=== PATIENT | male | born 1940 | race Two or more races ===

== ENCOUNTER 2017-01-31 23:57 | Inpatient (IN) | payer MEDICARE, MEDICAID ==
[~2017-01-31] VITALS: Ht 165.1 cm; Wt 53.7 kg
[2017-02-01 00:54] LABS: BASOPHILS % (AUTO) 0.6 % (0.0-2.0); EOSINOPHILS # (AUTO) 0.3 /CMM (0.0-0.7); HEMATOCRIT 39 % (39-51); HEMOGLOBIN 13.1 g/dL (13.5-17.5); LYMPHOCYTES # (AUTO) 3.3 /CMM (0.8-4.8); LYMPHOCYTES % (AUTO) 48.9 % (20.0-44.0); MEAN CORPUSCULAR HEMOGLOBIN 29 PG (26.0-33.0); MEAN CORPUSCULAR HGB CONC 34 g/dl (31.0-36.0); MEAN CORPUSCULAR VOLUME 85 fL (80-96); MONOCYTES # (AUTO) 0.6 /CMM (0.1-1.30); MONOCYTES % (AUTO) 8.6 % (2.0-12.0); NEUTROPHILS # (AUTO) 2.5 /CMM (1.8-8.9); NEUTROPHILS % (AUTO) 36.9 % (43.0-81.0); PLATELET COUNT (AUTO) 195 /CMM (150-450); RDW COEFFICIENT OF VARIATION 14.3 (11.5-15.0); RED BLOOD CELL COUNT(AUTO) 4.55 MIL/uL (4.5-6.0); WHITE BLOOD COUNT (AUTO) 6.8 K/uL (4.3-11.0)
[2017-02-01 01:09] LABS: CALCIUM, SERUM 9.6 mg/dL (8.5-10.1); CARBON DIOXIDE 29 mmol/L (21-32); CHLORIDE 105 mmol/L (98-107); CREATININE 0.8 mg/dL (0.6-1.3); GLUCOSE 92 mg/dL (74-106); POTASSIUM 4.3 mmol/L (3.5-5.1); SODIUM SERUM 142 mmol/L (136-145); UREA NITROGEN, BLOOD 18 mg/dL (7-18)
[2017-02-01 01:15] LABS: ALANINE AMINOTRANSFERASE 20 U/L (12-78); ALBUMIN 3.6 g/dL (3.4-5.0); ALKALINE PHOSPHATASE 82 U/L (46-116); ASPARTATE AMINOTRANSFERASE 16 U/L (15-37); BILIRUBIN,TOTAL 0.6 mg/dL (0.2-1.0); TOTAL PROTEIN, SERUM 7.1 g/dL (6.4-8.2)
--- NOTE | 2017-02-01 02:14 | NUR ---
PATIENT GOES TO 314-1.
--- NOTE | 2017-02-01 02:20 | NUR ---
PT TO BE ADMITTED TO MED SURG 314 #1, REPORT CALLED TO RECEIVING RN. PT SLEEPING IN GURNEY AT THIS TIME IN NAD, EASILY AWOKEN, A/OX3, PT IN STABLE CONDITION
--- NOTE | 2017-02-01 02:42 | NUR ---
report given to ms sage
--- NOTE | 2017-02-01 03:35 | NUR ---
RN OPEN NOTES RECEIVED PATIENT FROM ER VIA [place]. A/O X2-3. NO SIGNS OF DISTRESS OR DISCOMFORT. BREATHING EVEN AND UNLABORED. IV ACCESS IN R HAND, PATENT AND INTACT, NO SIGNS OF REDNESS OR INFILTRATION. ORIENTED PATIENT TO UNIT AND ROOM. ALL PHOTOS TAKEN. BED IN LOW LOCKED POSITION WITH SIDE RAILS X3. CALL LIGHT WITHIN REACH. WILL CONTINUE TO MONITOR.
[2017-02-01 04:00] VITALS: BP 164/68
[2017-02-01] MEDS ORDERED: ENOXAPARIN SODIUM 40 MG/0.4 ML DISP.SYRIN SQ SCH (04:30)
[2017-02-01] MEDS ORDERED: Z GUARD REMEDY 2 OZ OINT TP PRN (04:30)
[2017-02-01] MEDS ORDERED: ONDANSETRON HCL/PF 4 MG/2 ML VIAL IVP PRN (04:30)
[2017-02-01] MEDS ORDERED: ACETAMINOPHEN 325 MG TABLET PO PRN (04:30)
[2017-02-01] MEDS ORDERED: ENOXAPARIN SODIUM 40 MG/0.4 ML DISP.SYRIN SQ ONE (05:30)
[2017-02-01] MEDS: IV NS 0.9% 1,000 ML IV PRN ×2 (06:02→21:57)
--- NOTE | 2017-02-01 07:30 | NUR ---
RN OPENING NOTES RECEIVED PT. IN BED A&OX2, PT. FORGETFUL. PT. IS BLIND. BREATHING UNLABORED AND EVENLY ON ROOM AIR. NO S/S OF ACUTE DISTRESS. IV FLUIDS RUNNING AT 75 ML/HR. URINAL AT BEDSIDE. BED IS IN LOWEST POSITION, 2 SIDE RAILS UP, AND INSTRUCTED PT. TO USE CALL LIGHT FOR ASSISTANCE. WILL CONTINUE TO ASSESS AND MONITOR.
[2017-02-01 08:00] VITALS: BP 154/76
[2017-02-01] MEDS ORDERED: DOCU-25 PO (08:10)
[2017-02-01] MEDS ORDERED: MAGN400O6 PO (08:10)
[2017-02-01] MEDS ORDERED: ACET-868 PO (08:10)
[2017-02-01] MEDS ORDERED: LOSA100T15 PO (08:10)
[2017-02-01] MEDS ORDERED: MAG-55 PO (08:10)
[2017-02-01] MEDS ORDERED: CALC-838 PO (08:10)
[2017-02-01] MEDS ORDERED: DEXT15DR6 EACHEYE (08:10)
--- NOTE | 2017-02-01 08:21 | NUR ---
RN CLOSING NOTES PATIENT AWAKE IN BED. A/O X2-3. NO SIGNS OF DISTRESS OR DISCOMFORT. BREATHING EVEN AND UNLABORED. IV ACCESS IN R HAND WITH NS INFUSING, PATENT AND INTACT, NO SIGNS OF REDNESS OR INFILTRATION. ALL NEEDS MET. NO SIGNIFICANT CHANGES THROUGH THE NIGHT. BED IN LOW LOCKED POSITION WITH SIDE RAILS X3. CALL LIGHT WITHIN REACH. ENDORSED TO AM SHIFT FOR [facility].
[2017-02-01] MEDS: ASPIRIN EC 81 MG TABLET.DR PO SCH (09:44)
[2017-02-01] MEDS ORDERED: MAG HYDROX/AL HYDROX/SIMETH 30 ML UDC PO PRN (12:30)
[2017-02-01] MEDS ORDERED: MAGNESIUM HYDROXIDE 30 ML UDC PO PRN (12:30)
[2017-02-01] MEDS ORDERED: POLYVINYL ALCOHOL 15 ML BOTTLE OP PRN (12:30)
[2017-02-01] MEDS: CALCIUM CARB 600MG /VIT D 1 EACH TABLET PO SCH (12:53)
[2017-02-01] MEDS: LOSARTAN POTASSIUM 50 MG TABLET PO SCH (13:01)
--- NOTE | 2017-02-01 13:20 | NUR ---
RN NOTES PT. REFUSED TO TAKE SECOND 50 MG TAB OF [place]AN.
[2017-02-01 16:00] VITALS: BP 187/98
[2017-02-01] MEDS ORDERED: CLONIDINE HCL 0.1 MG TABLET PO PRN (17:00)
[2017-02-01] MEDS ORDERED: hydrALAZINE HCL IV 20 MG VIAL IV PRN (17:00)
--- NOTE | 2017-02-01 17:15 | NUR ---
RN NOTES AT 1645 PT. RECEIVED HYDRALAZINE IVP DUE TO HIGH BP >160 SBP. PT.'S BP DECREASED TO 110/50.
[2017-02-01] MEDS: DOCUSATE SODIUM 100 MG CAPSULE PO SCH (18:57)
--- NOTE | 2017-02-01 19:30 | NUR ---
RN CLOSING NOTES PT. IN BED A&OX2, FORGETFUL. BREATHING UNLABORED AND EVENLY ON ROOM AIR. NO S/S OF ACUTE DISTRESS. IV FLUIDS RUNNING AT 75 ML/HR. BED IS IN LOWEST POSITION, 2 SIDE RAILS UP, AND INSTRUCTED PT. TO USE CALL LIGHT FOR ASSISTANCE. WILL ENDORSE TO NURSE.
--- NOTE | 2017-02-01 19:44 | NUR ---
MS/RN RECEIVE PATIENT AWAKE, ALERT, ORIENTED, COMFORTABLE, NO C/O PAIN, NO DISTRESS NOTED, CALL LIGHT IN REACH. WILL MONITOR.
[2017-02-01 20:21] VITALS: BP 158/72
--- NOTE | 2017-02-01 20:47 | NUR ---
MS/RN ASSUMED CARE OF THIS PATIENT FOR CONTINUITY OF CARE. PATIENT IS SLEEPING AT THIS TIME, APPEAR COMFORTABLE, NO DISTRESS NOTED, CALL LIGHT IN REACH. WILL MONITOR.
--- NOTE | 2017-02-02 06:31 | NUR ---
MS/RN PATIENT IS AWAKE, ALERT, ORIENTED AT THIS TIME, COMFORTABLE, NO CHANGE IN CONDITION. HAD AN ON AND OFF SLEEP THE WHOLE NIGHT. ALL NEEDS ATTENDED AT THIS TIME. WILL CONTINUE TO MONITOR.
[2017-02-02 08:00] VITALS: BP 156/68
--- NOTE | 2017-02-02 08:00 | NUR ---
MS EDUARDO AM NOTES RECEIVED PT. IN BED A&OX2, PT. FORGETFUL. PT. IS BLIND. BREATHING UNLABORED AND EVENLY ON ROOM AIR. NO S/S OF ACUTE DISTRESS. IV FLUIDS RUNNING AT 75 ML/HR. PT REFUSED BLOOD DRAW FOR AM LABS INSPITE OF EXPLAINING ITS RISKS AND BENEFITS.PT ATE 80%BREAKFAST AND IS ASSISTED WITH FEEDING.PT WORKED WITH P.T. AND NEEDS MIN TO MODERATE ASSIST WITH TRANSFERS DUE TO BEING BLIND.BED IS IN LOWEST POSITION, 2 SIDE RAILS UP, AND INSTRUCTED PT. TO USE CALL LIGHT FOR ASSISTANCE. WILL CONTINUE TO ASSESS AND MONITOR.
[2017-02-02] MEDS: ASPIRIN EC 81 MG TABLET.DR PO SCH (08:36)
[2017-02-02] MEDS: DOCUSATE SODIUM 100 MG CAPSULE PO SCH ×2 (08:36→17:15)
[2017-02-02] MEDS: LOSARTAN POTASSIUM 50 MG TABLET PO SCH (08:36)
[2017-02-02] MEDS: CALCIUM CARB 600MG /VIT D 1 EACH TABLET PO SCH (08:36)
[2017-02-02] MEDS: ENOXAPARIN SODIUM 40 MG/0.4 ML DISP.SYRIN SQ SCH (08:38)
--- NOTE | 2017-02-02 13:58 | NUR ---
DIETARY RECOMMENDATIONS RELAYED TO DR GARRETT DUE TO PT'S MALNUTRITION STATUS WITH ORDERS MADE AND CARRIED OUT.
[2017-02-02 16:00] VITALS: BP 133/77
[2017-02-02] MEDS ORDERED: BOOST PLUS FOOD-CHOCLATE 237 ML BOX PO SCH (17:00)
[2017-02-02] MEDS: BOOST FOOD- BERRY 237 ML BOX PO SCH ×2 (17:00→18:04)
[2017-02-02] MEDS: IV NS 0.9% 1,000 ML IV PRN (17:17)
--- NOTE | 2017-02-02 18:00 | NUR ---
PT SEEN BY P.T. AND WAS ABLE TO AMBULATE WITH MIN TO MOD ASSIST.PT TOLERATED WELL.
--- NOTE | 2017-02-02 19:45 | NUR ---
MS/RN NOTES RECEIVED PT. LYING IN BED RESTING. PT. IS EASILY AROUSABLE TO NAME. PT. IS AWAKE, ALERT AND ORIENTED X2. BREATHING EVEN AND UNLABORED ON ROOM AIR. NO SOB, RESPIRATORY DISTRESS OR COMPLAINTS OF PAIN NOTED AT THIS TIME. PT. WITH RIGHT HAND 20 GAUGE PERIPHERAL IV PRESENT, PATENT AND INTACT ADMINISTERING TO PT. NS @ 75 ML/HR. BED LOCKED AND IN LOWEST POSITION, SIDE RAILS UP X3, BED ALARM ON, CALL LIGHT WITHIN REACH, WILL CONTINUE TO MONITOR.
[2017-02-02 22:00] VITALS: BP 143/54
[2017-02-03] MEDS: IV NS 0.9% 1,000 ML IV PRN ×2 (05:29→22:02)
--- NOTE | 2017-02-03 06:28 | NUR ---
MS/RN NOTES PT. IS LYING IN BED RESTING. BREATHING EVEN AND UNLABORED ON ROOM AIR. NO SOB, RESPIRATORY DISTRESS OR COMPLAINTS OF PAIN NOTED AT THIS TIME. PT. WITH RIGHT HAND 20 GAUGE PERIPHERAL IV PRESENT, PATENT AND INTACT ADMINISTERING TO PT. NS @ 75 ML/HR. ALL PT. NEEDS MET. BED LOCKED AND IN LOWEST POSITION, SIDE RAILS UP X3, BED ALARM ON, CALL LIGHT WITHIN REACH, WILL ENDORSE TO DAYSHIFT NURSE FOR CONTINUITY OF CARE.
[2017-02-03 08:00] VITALS: BP 178/71
--- NOTE | 2017-02-03 08:00 | NUR ---
MS CLARK AM NOTES RECEIVED PT. IN BED A&OX2, PT. FORGETFUL. PT. IS BLIND. BREATHING UNLABORED AND EVENLY ON ROOM AIR. NO S/S OF ACUTE DISTRESS. IV FLUIDS RUNNING AT 75 ML/HR. PT ATE BREAKFAST AND IS ASSISTED WITH FEEDING.PT WORKED WITH P.T. AND NEEDS MIN TO MODERATE ASSIST WITH TRANSFERS DUE TO BEING BLIND.BED IS IN LOWEST POSITION, 2 SIDE RAILS UP, AND INSTRUCTED PT. TO USE CALL LIGHT FOR ASSISTANCE. WILL CONTINUE TO ASSESS AND MONITOR.
[2017-02-03] MEDS: DOCUSATE SODIUM 100 MG CAPSULE PO SCH ×2 (09:42→17:26)
[2017-02-03] MEDS: LOSARTAN POTASSIUM 50 MG TABLET PO SCH (09:42)
[2017-02-03] MEDS: ASPIRIN EC 81 MG TABLET.DR PO SCH (09:42)
[2017-02-03] MEDS: CALCIUM CARB 600MG /VIT D 1 EACH TABLET PO SCH (09:42)
[2017-02-03] MEDS: ENOXAPARIN SODIUM 40 MG/0.4 ML DISP.SYRIN SQ SCH (09:43)
[2017-02-03] MEDS: BOOST FOOD- BERRY 237 ML BOX PO SCH ×3 (09:43→17:26)
[2017-02-03 16:00] VITALS: BP 129/65
--- NOTE | 2017-02-03 18:10 | NUR ---
PT RESTING IN BED DENYING ANY PAIN OR DISTRESS.CALL LIGHT PLACED WITHIN REACH.
--- NOTE | 2017-02-03 19:15 | NUR ---
RN OPEN NOTES RECEIVED PATIENT AWAKE IN BED. A/OX2. NO SIGNS OF DISTRESS OR DISCOMFORT. BREATHING EVEN AND UNLABORED. IV ACCESS IN R HAND WITH NS INFUSING, PATENT AND INTACT, NO SIGNS OF REDNESS OR INFILTRATION. BED IN LOW LOCKED POSITION WITH SIDE RAILS X3. CALL LIGHT WITHIN REACH. WILL CONTINUE TO MONITOR.
[2017-02-03 20:00] VITALS: BP 148/72
--- NOTE | 2017-02-04 06:31 | NUR ---
RN CLOSING NOTES PATIENT AWAKE IN BED. A/O X2-3. NO SIGNS OF DISTRESS OR DISCOMFORT. BREATHING EVEN AND UNLABORED. IV ACCESS IN R HAND WITH NS INFUSING, PATENT AND INTACT, NO SIGNS OF REDNESS OR INFILTRATION. ALL NEEDS MET. NO SIGNIFICANT CHANGES THROUGH THE NIGHT. REPOSITIONED Q2H AND PRN. BED IN LOW LOCKED POSITION WITH SIDE RAILS X3. CALL LIGHT WITHIN REACH. WILL ENDORSE TO AM SHIFT FOR [place].
[2017-02-04 08:00] VITALS: BP 160/68
--- NOTE | 2017-02-04 08:00 | NUR ---
MS CLARK AM NOTES RECEIVED PT. IN BED A&OX2, PT. FORGETFUL AND IS BLIND. BREATHING UNLABORED AND EVENLY ON ROOM AIR. NO S/S OF ACUTE DISTRESS. IV FLUIDS RUNNING AT 75 ML/HR INFUSING WELL. PT ATE BREAKFAST AND IS ASSISTED WITH FEEDING.PT WORKED WITH P.T. AND NEEDS MIN TO MODERATE ASSIST WITH TRANSFERS DUE TO BEING BLIND.BED IS IN LOWEST POSITION, 2 SIDE RAILS UP, AND INSTRUCTED PT. TO USE CALL LIGHT FOR ASSISTANCE. WILL CONTINUE TO ASSESS AND MONITOR.
[2017-02-04 09:28] VITALS: BP 160/68
[2017-02-04] MEDS: DOCUSATE SODIUM 100 MG CAPSULE PO SCH (09:28)
[2017-02-04] MEDS: ASPIRIN EC 81 MG TABLET.DR PO SCH (09:28)
[2017-02-04] MEDS: CALCIUM CARB 600MG /VIT D 1 EACH TABLET PO SCH (09:28)
[2017-02-04] MEDS: LOSARTAN POTASSIUM 50 MG TABLET PO SCH (09:28)
[2017-02-04] MEDS: BOOST FOOD- BERRY 237 ML BOX PO SCH ×2 (09:30→12:15)
[2017-02-04] MEDS: ENOXAPARIN SODIUM 40 MG/0.4 ML DISP.SYRIN SQ SCH (09:30)
[2017-02-04] MEDS ORDERED: ASPI-605 PO (10:58)
--- NOTE | 2017-02-04 16:26 | NUR ---
DISCHARGED TO [facility] WITH STABLE V/S.REPORT CALLED IN TO EDUARDO CONDE.PT DENIES PAIN OR DISTRESS.FAMILY MADE AWARE OF THE DISCHARGE AND REMOVED IV H/L TO LT HAND WITH NO BLEEDING OR SWELLING ON THE SITE.
== END 2017-02-04 16:25 | DRG 640 ==
LOC: ER 23:58 → MED 02-01 02:18
PROVIDERS: ADMIT Nurse Practitioner Acute Care; ATTEND Nurse Practitioner Acute Care
DX: E86.0 Dehydration (principal); E43 Unspecified severe protein-calorie malnutrition; G93.41 Metabolic encephalopathy; J44.9 Chronic obstructive pulmonary disease, unspecified; E11.9 Type 2 diabetes mellitus without complications; D63.8 Anemia in other chronic diseases classified elsewhere; I10 Essential (primary) hypertension; R62.7 Adult failure to thrive; R26.9 Unspecified abnormalities of gait and mobility; Z66 Do not resuscitate; Z86.73 Personal history of transient ischemic attack (TIA), and cerebral infarction without residual deficits; Z79.82 Long term (current) use of aspirin
CPT/HCPCS: 36415; 70450-TC; 80053-TC; 84484-TC; 85025-TC; 87081-TC; 93307-TC; 97110-TC; 97530-TC; A4606; J0360; J1650; J7030; Z7610